=== PATIENT | female | born 1945 | race Two or more races ===

== ENCOUNTER 2024-10-03 21:16 | Emergency (ER) | payer OTHER ==
[~2024-10-03] VITALS: Ht 170.2 cm; Wt 63.5 kg
[2024-10-03 21:37] LABS: PLATELET COUNT (AUTO) 275 K/uL (179-408); RED BLOOD CELL COUNT(AUTO) 4.72 MIL/uL (3.63-4.92); RED CELL DISTRIBUTION WIDTH 13.3 % (12.3-17.7); WHITE BLOOD COUNT (AUTO) 10.8 K/uL (3.8-11.8)
[2024-10-03] MEDS ORDERED: MIRT-121 PO (21:41)
[2024-10-03] MEDS ORDERED: RIVA1PAT TD (21:41)
[2024-10-03] MEDS ORDERED: ASPI81TA31 PO (21:41)
[2024-10-03] MEDS ORDERED: METF-494 PO (21:41)
[2024-10-03] MEDS ORDERED: SERT25TA PO (21:41)
[2024-10-03] MEDS ORDERED: BUSP30TA2 PO (21:41)
[2024-10-03] MEDS ORDERED: CHOL500062 PO (21:41)
[2024-10-03 21:46] LABS: CREATININE 0.7 mg/dL (0.6-1.3); SODIUM SERUM 140 mmol/L (136-145); UREA NITROGEN, BLOOD 14 mg/dL (7-18)
[2024-10-03 21:52] LABS: ASPARTATE AMINOTRANSFERASE 18 U/L (15-37); TOTAL PROTEIN, SERUM 7.2 g/dL (6.4-8.2)
[2024-10-03 22:08] LABS: ETHANOL < 3 MG/DL (0-10)
[2024-10-03] MEDS ORDERED: HALOPERIDOL LACTATE 5 MG/1 ML VIAL ONE (22:23)
[2024-10-03] MEDS ORDERED: diphenhydrAMINE 50 MG/1 ML VIAL ONE (22:23)
[2024-10-03] MEDS ORDERED: LORAZEPAM 2 MG/1 ML VIAL ONE (22:24)
[2024-10-03] MEDS ORDERED: IV NORMAL SALINE 250 ML IV ONE (22:39)
[2024-10-03] MEDS ORDERED: SWABABLE VALVE TRANSFER SET EA MC ONE (22:39)
[2024-10-03] MEDS ORDERED: IOHEXOL 350 100 ML INFUS..BTL ONE (22:39)
[2024-10-03] MEDS: diphenhydrAMINE 50 MG/1 ML VIAL IV ONE (22:48)
[2024-10-03] MEDS: LORAZEPAM 2 MG/1 ML VIAL IV ONE (22:48)
[2024-10-03] MEDS: HALOPERIDOL LACTATE 5 MG/1 ML VIAL IV ONE (22:57)
[2024-10-04 00:14] LABS: *BILIRUBIN,URIN NEGATIVE (NEGATIVE); *BLOOD, URINE NEGATIVE (NEGATIVE); *CLARITY,URINE CLEAR (CLEAR); *COLOR,URINE YELLOW (YELLOW); *KETONES,URINE NEGATIVE (NEGATIVE); *PROTEIN,URINE NEGATIVE (NEGATIVE); *UROBILINOGEN,URINE 0.2 E.U./dl (NORMAL); LEUKOCYTE ESTERASE ,URINE NEGATIVE (NEGATIVE); NITRITE, URINE POSITIVE (NEGATIVE); UGLUCOSE NEGATIVE (NEGATIVE)
[2024-10-04 00:21] LABS: SQUAMOUS EPITHELIAL CELL,UR MODERATE /HPF (NONE SEEN)
[2024-10-04] MEDS: NITROFURANTOIN/NITROFURAN MAC 100 MG CAPSULE PO ONE (00:45)
[2024-10-04] MEDS ORDERED: CEFTRIAXONE 1 G VIAL ONE (01:09)
[2024-10-04] MEDS: CEFTRIAXONE 1 G VIAL IM ONE (01:28)
[2024-10-04 02:50] VITALS: O2SAT 100
== END 2024-10-04 02:50 | disposition short-term general hospital (02) ==
LOC: ER 21:29
DX: R27.0 Ataxia, unspecified (principal); G30.9 Alzheimer's disease, unspecified; F02.80 Dementia in other diseases classified elsewhere, unspecified severity, without behavioral disturbance, psychotic disturbance, mood disturbance, and anxiety; R94.31 Abnormal electrocardiogram [ECG] [EKG]; E11.9 Type 2 diabetes mellitus without complications; E78.5 Hyperlipidemia, unspecified; Z79.899 Other long term (current) drug therapy; Z88.8 Allergy status to other drugs, medicaments and biological substances
CPT/HCPCS: 80076; 80048; 82140; 84443; 85025; 85730; 84484 ×2; 36415 ×2; 71045; 72170; 70450; 70496; 70498; 72125; 93005; 99285; 96375; 80299; 80320; 80179; 81001; 87086; 96365; J1200; J1630; J2060; Q9967; J0696; A4606; A4663; C1758; G0480